=== PATIENT | male | born 1985 | race Caucasian/White ===

== ENCOUNTER 2016-12-15 19:46 | Emergency (ER) | payer MEDICAID, OTHER ==
[~2016-12-15] VITALS: Ht 172.7 cm; Wt 70.1 kg
[2016-12-15 19:52] VITALS: Ht 172.7 cm; Wt 70.1 kg
[2016-12-15] MEDS ORDERED: KETOROLAC 30 MG INJ IM STA (21:23)
--- NOTE | 2016-12-15 21:37 | ERD ---
ER Documentation Chief Complaint Date/Time DATE: 12/15/16 TIME: 21:32 Chief Complaint LT SHOULDER PAIN X3 WEEKS WORSE TODAY HPI Patient is a 31-year-old male with no past medical history who presents to the ED with left shoulder pain on and off for the last 3 weeks. 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 He states that he injured himself on the job and has had shoulder pain ever since. He states that he went to the emergency department 3 weeks ago and had a negative x-ray. He states that he has been taking Tylenol and Aleve for his symptoms which have minimally helped. He states that the pain occasionally radiates down his left arm. He denies chest pain or cough or shortness of breath. He also complains of neck pain. Denies headache or dizziness. Denies leg pain or leg stiffness. Denies shortness of breath. ROS All systems reviewed and are negative except as per history of present illness. PMhx/Soc Medical and Surgical Hx: pt denies Medical Hx, pt denies Surgical Hx History of Surgery: No Anesthesia Reaction: No Hx Neurological Disorder: No Hx Respiratory Disorders: No Hx Cardiac Disorders: No Hx Psychiatric Problems: No Hx Miscellaneous Medical Probl: No Hx Alcohol Use: No Hx Substance Use: No Hx Tobacco Use: No Smoking Status: Never smoker FmHx Family History: No coronary disease, No diabetes, No other Physical Exam Vitals Vital Signs Date Time Temp Pulse Resp B/P Pulse Ox O2 Delivery O2 Flow Rate FiO2 12/15/16 19:52 97.6 96 18 134/89 96 Physical Exam GENERAL: Well-developed, well-nourished male. Appears in no acute distress. HEAD: Normocephalic, atraumatic. EYES: Pupils are equally reactive bilaterally. EOMs grossly intact. No conjunctival erythema. ENT: Moist mucous membranes. No uvula deviation. No kissing tonsils. No exudates. NECK: Supple. No lymphadenopathy or thyromegaly. No meningismus. negative kernig. negative brudinski. LUNG: Clear to auscultation bilaterally. No rhonchi, wheezing, rales or coarse breath sounds. HEART: Regular rate and rhythm. No murmurs, rubs or gallops. ABDOMEN: No scars, ecchymosis or rashes noted. Soft, nontender, and nondistended. Positive bowel sounds in all four quadrants. No rebound tenderness , no guarding. (-) McBurneys point tenderness. No CVA tenderness. BACK: No midline tenderness. Extremities: Equal pulses bilaterally. No peripheral clubbing, cyanosis or edema. No unilateral leg swelling. Tenderness to the left scapula with no step- offs or deformities. No open wounds or lacerations. No swelling or erythema. Minimal extension and flexion. No wrist drop. Radius, ulnar and median nerve intact. Sensation intact. Positive empty can test. NEUROLOGIC: Alert and oriented. Moving all four extremities. . Normal speech. Steady gait. SKIN: Normal color. Warm and dry. No rashes or lesions. Capillary refill < 2 seconds Results 24 hrs Current Medications Medications (Trade) Dose Ordered Sig/Mukund Route PRN Reason Start Time Stop Time Status Last Admin Dose Admin Ketorolac Tromethamine (Toradol) 30 mg ONCE STAT IM 12/15/16 21:23 12/15/16 21:24 DC Procedures/MDM ER COURSE: I kept the patient and/or family informed of laboratory and diagnostic imaging results throughout the emergency room course. MEDICAL DECISION MAKING: This is a 31-year-old male who presents with left shoulder pain 3 weeks. Vital signs were reviewed. Patient is afebrile. Patient is not hypoxic. Patient is nontoxic or ill-appearing. Patient has left shoulder pain of unknown etiology likely muscle strain versus sprain. No x-ray was done today as patient does not have trauma and had a negative x-ray 3 weeks ago. I did explain to patient that he needs to have an MRI and referral from his primary care doctor for further evaluation. Patient was given Toradol here in the ED. Tolerated well with no adverse reaction. Low suspicion for dislocation, fracture, septic joint , compartment syndrome, osteomyelitis, cellulitis, avascular necrosis, neurological injury, vascular injury, tendon laceration. DISCHARGE: At this time, patient is stable for discharge and outpatient management with no new complaints during the ER course. Patient was sent home with naproxen and sling. Neurovascularly intact post placement patient will be discharged home with instructions to recheck for new or worsening symptoms such as fever, nausea , weakness, LOC and to follow up with primary care in the next 1-2 days. Patient was advised to return to the ER for any new or worsening symptoms. Plan was discussed and patient and/or family understands and agrees. Home instructions were given. Departure Diagnosis: Primary Impression: Shoulder pain Laterality: left Chronicity: acute Qualified Code: M25.512 - Acute pain of left shoulder Condition: Stable RYLAND MNIOR PA-C Dec 15, 2016 21:37
[2016-12-15] MEDS ORDERED: NAPR-260 PO (21:38)
[2016-12-15] MEDS ORDERED: CYCL-319 PO (21:39)
== END 2016-12-15 22:03 | disposition home or self-care (01) ==
LOC: FTE 19:46
DX: M25.512 Pain in left shoulder (principal)
CPT/HCPCS: 96372; 99284; J1885